=== PATIENT | female | born 1945 | race Caucasian/White ===

== ENCOUNTER 2021-08-15 06:23 | Day surgery (SDC) | payer OTHER ==
[~2021-08-15] VITALS: Ht 170.2 cm; Wt 99.8 kg
[2021-08-15] VITALS (8 sets, daily range): BP systolic 133–167; BP diastolic 75–98
[~2021-08-15 06:23] MED LIST: GABA-339 PO; HYDR-4798 PO; LEVO125T7 PO; LOSA-69 PO; OMEP20TA PO; PRAV20TA3 PO
[2021-08-15] MEDS ORDERED: VERAPAMIL 2.5MG/ML INJ 2ML VIAL IV ONE (07:49)
[2021-08-15] MEDS ORDERED: HEPARIN SODIUM (PORCINE) 5000 UNITS/ML 1ML VIAL ONE (07:49)
[2021-08-15] MEDS ORDERED: ANGIOMAX 250 MG VIAL IV ONE (07:49)
[2021-08-15] MEDS ORDERED: fentaNYL CITRATE 100 MCG/2 ML VL ONE (07:50)
[2021-08-15] MEDS ORDERED: SODIUM CHL 0.9% 0 ML ONE (07:50)
[2021-08-15] MEDS ORDERED: MIDAZOLAM HCL 2MG/2ML 2ml VIAL (1mg/ml) ONE (07:50)
[2021-08-15] MEDS ORDERED: IODIXANOL 320MG/ML 100ML BTL IV ONE (07:56)
[2021-08-15] MEDS ORDERED: LIDOCAINE 2%HCL (LOCAL ANESTH.) INJ 20ML MDV ONE (07:56)
[2021-08-15] MEDS ORDERED: NITROGLYCERIN 5MG/ML 10ML VIAL IV ONE (08:06)
[2021-08-15] MEDS ORDERED: diphenhdrAMINE HCL 50 MG/1 ML VL ONE (08:17)
== END 2021-08-15 11:15 | disposition home or self-care (01) ==
LOC: CATH 06:23
PROVIDERS: ATTEND Internal Medicine
DX: I25.118 Atherosclerotic heart disease of native coronary artery with other forms of angina pectoris (principal); I10 Essential (primary) hypertension; E78.5 Hyperlipidemia, unspecified; Z87.891 Personal history of nicotine dependence; Z79.899 Other long term (current) drug therapy; Z68.34 Body mass index [BMI] 34.0-34.9, adult; Z20.822 Contact with and (suspected) exposure to COVID-19; Z91.048 Other nonmedicinal substance allergy status
CPT/HCPCS: 93458; C1769; C1887; C1894; J1200; J1644; J2250; J3010; J3490; J7030; Q9967; U0003; 99152